=== PATIENT | female | born 1940 | race Caucasian/White ===

== ENCOUNTER 2017-12-15 02:22 | Emergency (ER) | payer MEDICARE, OTHER ==
[~2017-12-15] VITALS: Ht 170.2 cm; Wt 71.4 kg
[~2017-12-15 02:22] MED LIST: EST1T PO; OMEP40CA37 PO
[2017-12-15] MEDS ORDERED: normal saline 1000ml 1,000 ML IV ONE (02:40)
[2017-12-15] MEDS ORDERED: aspirin 325mg tablet PO ONE (02:40)
[2017-12-15] MEDS ORDERED: LORazepam 2 mg/ml vial IV ONE (02:40)
[2017-12-15 02:53] LABS: BASOPHILS % (AUTO) 0.3 % (0-1); EOSINOPHILS # (AUTO) 0.2 X10'3 (0-0.9); EOSINOPHILS % (AUTO) 3.2 % (0-6); HEMATOCRIT 42.5 % (35.0-45.0); HEMOGLOBIN 14.7 g/dl (12.0-16.0); LYMPHOCYTES # (AUTO) 3.2 X10'3 (1.1-4.8); LYMPHOCYTES % (AUTO) 48.7 % (21-51); MEAN CORPUSCULAR HGB CONC 34.6 % (33.0-36.5); MEAN CORPUSCULAR VOLUME 95.2 FL (78-98); MEAN PLATELET VOLUME 8.2 FL (7.4-10.4); MONOCYTES # (AUTO) 0.7 X10'3 (0-0.9); NEUTROPHILS # (AUTO) 2.5 X10'3 (1.8-7.7); NEUTROPHILS % (AUTO) 37.8 % (42-75); PLATELET COUNT 193 X10'3 (140-440); RED BLOOD COUNT 4.46 X10'6 (4.20-5.60); RED CELL DISTRIBUTION WIDTH 13.1 % (11.5-14.5); WHITE BLOOD COUNT 6.6 X10'3 (4.5-11.0)
[2017-12-15 03:03] LABS: INR 0.9 INR; PARTIAL THROMBOPLASTIN TIME 25 SECONDS (22-32); PROTHROMBIN TIME 9.8 SECONDS (9.0-12.0)
[2017-12-15 03:08] LABS: ALANINE AMINOTRANSFERASE 20 U/L (12-78); ALBUMIN 3.6 G/DL (3.4-5.0); ALBUMIN/GLOBULIN RATIO 1.1 (1.1-1.5); ALKALINE PHOSPHATASE 70 IU/L (46-116); ANION GAP 7 (8-16); ASPARTATE AMINO TRANSFERASE 14 U/L (10-37); BILIRUBIN,TOTAL 0.4 MG/DL (0.1-1.0); BLOOD UREA NITROGEN 16 MG/DL (7-18); BUN/CREATININE RATIO 14.3 (6.6-38.0); CALCIUM 9.3 MG/DL (8.5-10.1); CHLORIDE 104 MMOL/L (99-107); CREATININE 1.12 MG/DL (0.40-0.90); GLUCOSE 94 MG/DL (70-104); POTASSIUM 3.7 MMOL/L (3.5-5.1); SODIUM 136 MMOL/L (135-145); TOTAL CARBON DIOXIDE 25.3 MMOL/L (24-32); eGFR 47 ML/MIN
[2017-12-15 06:29] VITALS: BP 126/67
== END 2017-12-15 06:53 | disposition home or self-care (01) ==
LOC: ER 02:22
DX: R07.89 Other chest pain (principal); F41.9 Anxiety disorder, unspecified; Z88.5 Allergy status to narcotic agent; Z79.899 Other long term (current) drug therapy
CPT/HCPCS: 36415; 71045; 80053; 84484; 85025; 85610; 85730; 93005; 96374; 99285; J2060; J7030

== ENCOUNTER 2024-04-04 09:19 | Emergency (ER) | payer MEDICARE ==
[~2024-04-04] VITALS: Ht 167.6 cm; Wt 70.5 kg
[~2024-04-04 09:19] MED LIST changes: +OMEP40CA21 PO; -OMEP40CA37 PO
[2024-04-04 09:21] VITALS: TEMP 97.9
[2024-04-04 09:58] LABS: BASOPHILS % (AUTO) 0.1 % (0-1); EOSINOPHILS % (AUTO) 0.5 % (0-6); HEMATOCRIT 42.4 % (35.0-45.0); HEMOGLOBIN 14.3 g/dl (12.0-16.0); LYMPHOCYTES # (AUTO) 0.6 X10'3 (1.1-4.8); LYMPHOCYTES % (AUTO) 8.2 % (21-51); MEAN CORPUSCULAR HEMOGLOBIN 32.4 PG (27.0-31.0); MEAN CORPUSCULAR HGB CONC 33.8 g/dL (33.0-36.5); MEAN PLATELET VOLUME 8.3 FL (7.4-10.4); MONOCYTES # (AUTO) 0.5 X10'3 (0-0.9); MONOCYTES % (AUTO) 7.1 % (2-12); NEUTROPHILS # (AUTO) 6.1 X10'3 (1.8-7.7); NEUTROPHILS % (AUTO) 84.1 % (42-75); PLATELET COUNT 172 X10'3 (140-440); RED BLOOD COUNT 4.42 X10'6 (4.20-5.60); RED CELL DISTRIBUTION WIDTH 12.8 % (11.5-14.5); WHITE BLOOD COUNT 7.3 X10'3 (4.5-11.0)
[2024-04-04 10:17] LABS: ALBUMIN 3.6 G/DL (3.4-5.0); ANION GAP 6 (8-16); BLOOD UREA NITROGEN 13 MG/DL (7-18); BUN/CREATININE RATIO 14.3 (10.0-20.0); CALCIUM 8.5 MG/DL (8.5-10.1); CHLORIDE 106 MMOL/L (99-107); CREATININE 0.91 MG/DL (0.40-0.90); GLUCOSE 108 MG/DL (70-104); LIPASE 39 U/L (16-77); PRO BRAIN NATRIURETIC PEPTIDE 257 PG/ML (0-450); SODIUM 139 MMOL/L (135-145); TOTAL CARBON DIOXIDE 27.4 MMOL/L (24-32); eCRCL 45 ML/MIN; eGFR 59 ML/MIN
[2024-04-04 10:44] LABS: BILIRUBIN,URINE NEGATIVE (Neg); CLARITY,URINE CLEAR (Clear); COLOR,URINE YELLOW (Yellow); GLUCOSE, URINE NEGATIVE (Neg); KETONES,URINE TRACE mg/dl (Neg); LEUKOCYTE ESTERASE ,URINE NEGATIVE (Neg); NITRITES, URINE NEGATIVE (Neg); OCCULT BLOOD,URINE NEGATIVE (Neg); PH,URINE 8.5 (4.8-8.0); PROTEIN,URINE NEGATIVE (Neg); UROBILINOGEN,URINE 0.2 E.U/dL (0.2-1.0)
[2024-04-04] MEDS: diphenhydrAMINE 50 mg/ml inj IV ONE (10:45)
[2024-04-04 10:48] LABS: UA COLLECTION TYPE CLN CATCH MIDSTREAM
[2024-04-04] MEDS: metoclopramide 5 mg/ml inj IV ONE (10:52)
[2024-04-04] MEDS: normal saline 1000ML IV soln IVB ONE (10:55)
[2024-04-04 12:40] VITALS: RESP 16
[2024-04-04] MEDS ORDERED: CIPR-202 PO (14:04)
[2024-04-04] MEDS: ondansetron/PF 4mg/2ml inj IV ONE (14:04)
[2024-04-04] MEDS ORDERED: DIPH-186 PO (14:04)
[2024-04-04] MEDS ORDERED: ONDA-243 PO (14:04)
[2024-04-04 14:09] VITALS: BP 132/63; PULSE 68; O2SAT 96
== END 2024-04-04 14:25 | disposition home or self-care (01) ==
LOC: ER 09:20
DX: E86.0 Dehydration (principal); K52.9 Noninfective gastroenteritis and colitis, unspecified; R11.2 Nausea with vomiting, unspecified; I25.10 Atherosclerotic heart disease of native coronary artery without angina pectoris; Z79.899 Other long term (current) drug therapy; Z88.5 Allergy status to narcotic agent
CPT/HCPCS: 36415; 71045; 74176; 80048; 81003; 83690; 83735; 83880; 84484; 85025; 93005; 96361; 96374; 96375; 99285; J1200; J2405; J2765; J7030